=== PATIENT | male | born 2000 | race Caucasian/White ===

== ENCOUNTER 2022-06-22 08:00 | Outpatient (CLI) | payer OTHER ==
[2022-06-23 15:27] LABS: CHLAMYDIA TRACHOMATIS DNA NEGATIVE (NEGATIVE); NEISSERIA GONORRHOEAE DNA NEGATIVE (NEGATIVE)
== END 2022-06-22 23:59 | disposition home or self-care (01) ==
LOC: LAB.N 08:00
PROVIDERS: ATTEND Physician Assistant Medical
DX: R36.9 Urethral discharge, unspecified (principal)
CPT/HCPCS: 87491; 87591; 87661